=== PATIENT | female | born 1965 | race Caucasian/White ===

== ENCOUNTER 2017-08-16 15:51 | Inpatient (IN) ==
[2017-08-16 16:39] LABS: Basophils % 0.2 % (0.0-0.8); Eosinophils # 0.1 10*3/uL (0.0-0.87); Eosinophils % 0.6 % (0.00-10.9); Hematocrit 46.4 VOL% (35.7-47.0); Hemoglobin 15.9 GM/DL (12.0-16.0); Immature Granulocytes % 0.3 %; Immature Granulocytes Absolute 0.04 #; Lymphocytes % 29.8 % (21.3-54.2); Mean Corpuscular HGB Conc 34.3 GM/DL (32-36); Mean Corpuscular Hemoglobin 31 PG (27-34); Mean Corpuscular Volume 89.2 FL (87-102); Mean Platelet Volume 9.9 FL (9.6-12.0); Monocytes # 1.5 10*3/uL (0.11-0.8); Monocytes % 10.7 % (1.7-12.7); Neutrophils # 7.9 10*3/uL (1.4-7.4); Neutrophils % 58.4 % (38.7-73.9); Platelet Count 257 T/CUMM (130-400); Red Cell Distribution Width 12.8 % (9.3-17.3); White Blood Count 13.6 T/CUMM (4-12)
[2017-08-16 17:05] LABS: Albumin 3.8 G/DL (3.4-5.0); Bilirubin,Total 1.4 MG/DL (0.2-1.0); Calcium 9.7 MG/DL (8.5-10.1); Lactic Acid 1.3 MMOL/L (0.4-2.0); Osmolality,Calculated 271.8 MOS/KG (273-304); Potassium 3.5 MMOL/L (3.5-5.1); Total Protein 8.4 G/DL (6.4-8.3)
[2017-08-16] MEDS ORDERED: PIPERACILLIN/TAZOBACTAM 3,375 MG in SODIUM CHLORIDE 0.9% 100 ML IV STA (17:34)
--- NOTE | 2017-08-16 17:46 | Emergency Department Note ---
Victor M Willis Manpreet, am scribing for, and in the presence of, Micha Park MD 16: 50. Xavier Willis Micah, MD, personally performed the services described in this documentation, ascribed by Vinayak Dow in my presence, and it is both accurate and complete 744 . Arrival - Arrival Chief Complaint: Animal Bite Stated Complaint: cat bite ED Nursing Triage Note: Pt c/o cat bite to her left hand on . that was her cat with its immunizations UTD. Pt was seen by Dr Boss yesterday given Rocephin inj and Augmentin RX but the swelling has worsened. Mode of Arrival: Ambulatory Limitations: No Limitations Source: Patient Time Seen by Provider: 08/16/17 16:42 - History of Present Illness HPI Narrative: Pt is a 52 y/o female who presents to the ED with CC of redness and swelling to her left hand S/P bite from her cat on 08/13/17. Pt has three puncture wounds which have been draining. Pt was seen by Dr. Boss yesterday and Rx'ed Augmentin which she states she has taken. Patient also given Rocephin at that time. Pt states the swelling has worsened. Pt's left hand is marked with a pink marker and a black marker to indicate growth of the infection. Pt denies any fever, chills, or N/V/D. No other pains/complaints reported to the ED. Onset (ago): day(s) (08/13/17) Consistency: constant Severity: moderate Allergies/Adverse Reactions: Allergies Allergy/AdvReac Type Severity Reaction Status Date / Time No Known Allergies Allergy Unverified 02/20/15 06:43 Home Medications: Home Medications Medication Instructions Recorded Confirmed Type Ascorbic Acid [Vitamin C] 500 mg PO DAILY 02/20/15 02/20/15 History Lysine 500 mg PO DAILY 02/20/15 02/20/15 History Multivitamin [One Daily] 1 each PO DAILY 02/20/15 02/20/15 History Sulfameth/Trimeth 800-160 Tab 1 tablet PO BID #14 tablet 02/20/15 Rx [Bactrim Ds Tab] Sulfameth/Trimeth 800-160 Tab See Protocol PO DAILY 02/20/15 02/20/15 History [Bactrim Ds Tab] Vitamin E 400 unit PO DAILY 02/20/15 02/20/15 History Zinc 1 mg PO DAILY 02/20/15 02/20/15 History Review of System - Review of System 12 point system: reviewed and no additional remarkable complaints except as stated - Review of System Constitutional: Absent: chills, diaphoresis, fever Respiratory: Absent: cough, respiratory distress, wheezing Cardiovascular: Absent: chest pain, palpitations Gastrointestinal: Absent: abdominal pain, nausea, vomiting, diarrhea Musculoskeletal: Present: arm pain (Left arm/hand pain) Skin: Present: change in color (Redness to left hand). Absent: rash Neurological: Absent: headache, weakness, numbness, paresthesias Medical,Surgical,& Family Hx - Medical History Gastrointestinal: History of: Ulcerative Colitis - Surgical History Abdominal Surgeries: Surgical HX of: Cholecystectomy Orthopedic Surgeries: Surgical HX of;: Orthopedic Surgery (right hip) - Social History Smoking Status: Never smoker Exam Vital Signs: Vital Signs Temperature 96.5 F L 08/16/17 15:52 Pulse Rate 86 08/16/17 15:52 Respiratory Rate 16 08/16/17 15:52 Blood Pressure 144/103 08/16/17 15:52 O2 Sat by Pulse Oximetry 99 08/16/17 15:52 - General General appearance: alert - Head Head exam: Present: atraumatic, normocephalic, normal inspection - Eye Eye exam: Present: normal appearance, PERRL, EOMI - ENT ENT exam: Present: normal exam, normal oropharynx, mucous membranes moist, TM's normal bilaterally - Neck Neck exam: Present: normal inspection, full ROM, trachea midline. Absent: tenderness - Chest Chest inspection: Present: normal inspection, symmetric chest wall rise. Absent : tenderness - Respiratory Respiratory exam: Present: normal lung sounds bilaterally. Absent: accessory muscle use - Cardiovascular Cardiovascular exam: Present: regular rate, normal rhythm, normal heart sounds. Absent: murmur, rubs, gallop - Abdominal Exam Abdominal exam: Present: soft, normal bowel sounds - Extremities Exam Extremities exam: Present: full ROM, other (Left hand and wrist and forearm erythematous and tender to palpation. See skin exam for detailed) - Back Exam Back exam: Present: normal inspection, full ROM - Neurological Exam Neurological exam: Present: alert, oriented X3, reflexes normal - Psychiatric Psychiatric exam: Present: normal affect, normal mood - Skin Skin exam: Present: warm, dry, erythema (To left wrist and arm; 2 puncture wounds to dorsal aspect of left arm and 1 puncture wound to the volar aspect of left wrist, erythema streaking proximally up the left forearm). Absent: normal color Course Course Narrative: Hospitalist called for admission for parenteral antibiotics. Started Zosyn IV, first dose given in ER. Patient without signs of systemic infection. Results - Labs CBC & BMP: 08/16/17 16:24 08/16/17 16:24 Lab Results: I have reviewed the patients labs Labs: Laboratory Tests 08/16/17 16:24 WBC 13.6 H RBC 5.20 Hgb 15.9 Hct 46.4 MCV 89.2 MCH 31 MCHC 34.3 RDW 12.8 Plt Count 257 MPV 9.9 Neut % (Auto) 58.4 Lymph % (Auto) 29.8 [place] % (Auto) 10.7 Eos % (Auto) 0.6 Baso % (Auto) 0.2 Neut # (Auto) 7.9 H Lymph # (Auto) 4.0 [place] # (Auto) 1.5 H Eos # (Auto) 0.1 Baso # (Auto) 0.0 Immature Gran % 0.3 Nucleated RBC % 0.0 Immature Gran # 0.04 Nucleated RBCs # 0.00 Immature Plt Fraction 0.0 Laboratory Tests 08/16/17 16:24 Sodium 137 Potassium 3.5 Chloride 104 Carbon Dioxide 25 Anion Gap 11.5 BUN 12 Creatinine 1.00 GFR Calculation 74 BUN/Creatinine Ratio 12.00 Glucose 76 Calculated Osmolality 271.8 L Lactic Acid 1.3 Calcium 9.7 Total Bilirubin 1.40 H AST 29 ALT 59 H Alkaline Phosphatase 136 H Total Protein 8.4 H Albumin 3.8 Globulin 4.6 H Albumin/Globulin Ratio 0.8 L Disposition Clinical Impression: Bite by animal Case discussed with: patient Disposition: Still a Patient Condition: Stable Time of Disposition: 17:45
[2017-08-16] MEDS ORDERED: MORPHINE 2 MG/1 ML SYRINGE IV PRN (17:58)
[2017-08-16] MEDS ORDERED: ACETAMINOPHEN 325 MG TABLET PO PRN (17:58)
[2017-08-16] MEDS ORDERED: DOCUSATE SODIUM 100 MG CAPSULE PO PRN (17:58)
[2017-08-16] MEDS ORDERED: ZALEPLON 5 MG CAPSULE PO PRN (17:58)
[2017-08-16] MEDS ORDERED: ONDANSETRON 4 MG/2 ML VIAL IV PRN (17:58)
[2017-08-16] MEDS ORDERED: SODIUM CHLORIDE 0.9% 100 ML IV ONE (18:01)
[2017-08-16] MEDS ORDERED: PIPERACILLIN/TAZOBACTAM 3,375 MG VIAL IV ONE (18:01)
--- NOTE | 2017-08-16 18:14 | Hospitalist History & Physical ---
Assessment and Plan (1) Bite by animal Status: Acute Assessment and plan: Patient being started on IV Zosyn to cover common cat bite pathogens including Pasteurella, Capnocytophaga, Anerobes, Staph & streptococci spp. Will consult orthopedics and get an MRI of the hand to evaluate for subcutaneous abscess, osteomyelitis septic arthritis or tendinitis. Follow-up on the wound and blood cultures. Provide pain relief with NSAIDs and narcotics. Current Visit: Yes History of Present Illness Chief complaint: Left hand pain & swelling x 3 days History of present illness: Ms. Lopez is a 52 year old who presented to ED with redness and swelling to her left hand S/P bite from her pet cat 3 days ago on 08/13/17. Pt prsented three puncture wounds which have been draining yellowish purulent material. Pt was seen by PCP Dr. Boss yesterday and prescribed Augmentin which she has been taking. Patient also received Rocephin at that time. Pt stated that swelling has progressed. In ER pt's left hand was marked with a pink marker and a black marker to indicate growth of the infection. Pt denied any fever, chills. She had difficulty sleeping last night due to pain she reports was 10 out of 10 in intensity. She has been taking ibuprofen for pain control. She is now being admitted to hospitalist service for IV antibiotics. Home Medications Medication Instructions Recorded Confirmed Type Ascorbic Acid [Vitamin C] 500 mg PO DAILY 02/20/15 02/20/15 History Lysine 500 mg PO DAILY 02/20/15 02/20/15 History Multivitamin [One Daily] 1 each PO DAILY 02/20/15 02/20/15 History Sulfameth/Trimeth 800-160 Tab 1 tablet PO BID #14 tablet 02/20/15 Rx [Bactrim Ds Tab] Sulfameth/Trimeth 800-160 Tab See Protocol PO DAILY 02/20/15 02/20/15 History [Bactrim Ds Tab] Vitamin E 400 unit PO DAILY 02/20/15 02/20/15 History Zinc 1 mg PO DAILY 02/20/15 02/20/15 History Allergies Allergy/AdvReac Type Severity Reaction Status Date / Time No Known Allergies Allergy Unverified 02/20/15 06:43 Medical,Surgical,& Family Hx - Medical History Gastrointestinal: History of: Ulcerative Colitis - Surgical History Abdominal Surgeries: Surgical HX of: Cholecystectomy Orthopedic Surgeries: Surgical HX of;: Orthopedic Surgery (right hip) - Social History Smoking Status: Never smoker Marital Status: 12 point system: reviewed and no additional remarkable complaints except as stated (Pain and swelling and erythema in the left hand) Exam - Constitutional Vitals: Period Temp Pulse Resp BP Sys/Branham Pulse Ox Last 24 Hr 96.5 F 86 16 144/103 99 Exam: General: No Acute Distress HEENT: Normocephalic, atraumatic, Extra ocular movements intact Neck: Supple, No JVD Chest: Clear to auscultation B/L CV: S1 + S2 audible without murmur, gallop or rub Abd: soft, NT, Non-distended, BS + Ext: Left hand erythematous and swollen with 3 puncture wounds, one draining purulent material, erythema and swelling extending to the distal forearm Skin: No purpura, bruising or rash Rheumatologic: No Joint deformities Neurologic: Strength 5/5 all extremities, no gross sensory deficits Results - Labs CBC & BMP: 08/16/17 16:24 08/16/17 16:24 Quality Measures - VTE Contraindication to Pharmacological VTE Prophylaxis: Already on Theraputic Agent , No Prophylaxis Needed
--- NOTE | 2017-08-16 20:19 | XRay Report ---
Exam: XR hand 3V LT Indication: Injury Pain, Comparison: No relevant comparisons Findings: Joint spaces fairly well maintained. No fracture or dislocation. No joint effusion. Dorsal soft tissue swelling. No radiopaque foreign bodies Impression: Dorsal soft tissue swelling. No associated osseous or articular abnormalities PROCEDURE INTERPRETED AT [facility] DEPARTMENT OF RADIOLOGY Final Report Signed by: Karan Card MD
--- NOTE | 2017-08-16 20:24 | XRay Report ---
Exam: XR wrist 3V LT Indication: Cat-bite, swelling Pain, Comparison: No relevant comparisons Findings: Joint spaces fairly well maintained. No fracture or dislocation. No joint effusion. Dorsal soft tissue swelling. No radiopaque foreign bodies Impression: Dorsal soft tissue swelling. No associated osseous or articular abnormalities PROCEDURE INTERPRETED AT [facility] DEPARTMENT OF RADIOLOGY Final Report Signed by: Karan Card MD
[2017-08-16] MEDS: ENOXAPARIN 40 MG/0.4 ML SYRINGE SUBCUT SCH (20:41)
[2017-08-17] MEDS: NAPROXEN 500 MG TABLET PO PRN ×2 (00:41→17:00)
[2017-08-17] MEDS: PIPERACILLIN/TAZOBACTAM 3,375 MG in SODIUM CHLORIDE 0.9% 100 ML IV SCH ×3 (02:02→17:41)
[2017-08-17 05:05] LABS: Basophils % 0.3 % (0.0-0.8); Eosinophils # 0.1 10*3/uL (0.0-0.87); Eosinophils % 0.5 % (0.00-10.9); Hematocrit 42.6 VOL% (35.7-47.0); Hemoglobin 14.8 GM/DL (12.0-16.0); Immature Granulocytes % 0.4 %; Immature Granulocytes Absolute 0.05 #; Lymphocytes # 2.4 10*3/uL (1.4-4.0); Lymphocytes % 18.2 % (21.3-54.2); Mean Corpuscular HGB Conc 34.7 GM/DL (32-36); Mean Corpuscular Hemoglobin 31 PG (27-34); Mean Corpuscular Volume 88.6 FL (87-102); Mean Platelet Volume 10.6 FL (9.6-12.0); Monocytes # 1.5 10*3/uL (0.11-0.8); Monocytes % 11.7 % (1.7-12.7); Neutrophils % 68.9 % (38.7-73.9); Platelet Count 250 T/CUMM (130-400); Red Blood Count 4.81 MC/CUMM (3.8-5.5); Red Cell Distribution Width 12.7 % (9.3-17.3); White Blood Count 13.1 T/CUMM (4-12)
[2017-08-17 05:34] LABS: Calcium 8.6 MG/DL (8.5-10.1); Osmolality,Calculated 282.1 MOS/KG (273-304); Potassium 4.1 MMOL/L (3.5-5.1)
--- NOTE | 2017-08-17 07:28 | Orthopedic Consult Note ---
History of Present Illness Chief complaint: Hand infection left History of present illness: Ms. Lopez is a 52 year old female See dictated report Impression: Cat bite with subcutaneous hand infection Plan. We will keep n.p.o. cancel MRI and proceed with I&D and surgery today Home Medications Medication Instructions Recorded Confirmed Type Ascorbic Acid [Vitamin C] 500 mg PO DAILY 02/20/15 08/16/17 History Lysine 500 mg PO DAILY 02/20/15 08/16/17 History Multivitamin [One Daily] 1 each PO DAILY 02/20/15 08/16/17 History Sulfameth/Trimeth 800-160 Tab 1 tablet PO BID #14 tablet 02/20/15 08/16/17 Rx [Bactrim Ds Tab] Vitamin E 400 unit PO DAILY 02/20/15 08/16/17 History Zinc 1 mg PO DAILY 02/20/15 08/16/17 History PARoxetine HCl [Paroxetine HCl] 20 mg PO DAILY 08/16/17 08/16/17 History Allergies Allergy/AdvReac Type Severity Reaction Status Date / Time No Known Allergies Allergy Unverified 02/20/15 06:43 Medical,Surgical,& Family Hx - Medical History Cardio: History of: Hypertension Respiratory: History of: Bronchitis Gastrointestinal: History of: Ulcerative Colitis - Surgical History Abdominal Surgeries: Surgical HX of: Cholecystectomy, Colonoscopy (x5) Reproductive Surgeries: Surgical HX of;: Tubal Ligation Orthopedic Surgeries: Surgical HX of;: Orthopedic Surgery (right hip ORIF) - Family History Family History: Reports;: Family Cancer (Father, sister), Family Hypertension ( Father), Family Stroke (Father) - Social History Smoking Status: Never smoker Frequency of Alcohol Use: None Type of Drug Use: None Exam - Constitutional Vitals: Period Temp Pulse Resp BP Sys/Branham Pulse Ox Last 24 Hr 96.5 F-98.6 F 73-86 16-20 121-153/69-104 96-99 Results - Labs CBC & BMP: 08/17/17 04:01 08/17/17 04:01
[2017-08-17] MEDS ORDERED: DIAZEPAM 5 MG TABLET PO ONE (07:53)
[2017-08-17] MEDS: PARoxetine 20 MG TABLET PO SCH (09:00)
[2017-08-17] MEDS: PANTOPRAZOLE 40 MG TABLET PO SCH (09:23)
[2017-08-17] MEDS ORDERED: SCOPOLAMINE 1.5 MG PATCH TRANSDERM ONE (10:19)
--- NOTE | 2017-08-17 10:37 | Hospitalist Progress Note ---
Assessment and Plan (1) Bite by animal Status: Acute Assessment and plan: Cat bite with subcutaneous left hand infection. Surgery is taking to the OR today for I&D. MRI has been canceled. Plan Continue with IV antibiotics Follow cultures Continue with Surgery's recommendations. Current Visit: Yes (2) HTN (hypertension) Status: Acute Assessment and plan: will start Novasc 5mg, follow response get UA, lipids, A1c and TSH levels Current Visit: Yes (3) Ulcerative colitis Status: Acute Assessment and plan: stable Current Visit: Yes (4) Bronchitis Status: Acute Assessment and plan: stable Current Visit: Yes Hospitalist: Subjective Interval history: patient seen this am. She had no new complaints. Surgery is taking to the OR for Iand D today. Exam - Constitutional Vitals: Period Temp Pulse Resp BP Sys/Branham Pulse Ox Last 24 Hr 96.5 F-98.6 F 73-86 16-20 121-153/69-104 96-99 General appearance: no acute distress - Head Head exam: Present: normal inspection - Neck Neck exam: Present: normal inspection - Respiratory Respiratory exam: Present: clear to auscultation bilaterally - Cardiovascular Cardiovascular exam: Present: regular rate and rhythm - GI/Abdominal GI/Abdominal exam: Present: normal bowel sounds - Extremities Exam Extremities exam: Present: other (left hand swelling, tenderness, bandaged) - Neurological Exam Neurological exam: Present: alert, oriented X3 Results - Labs CBC & BMP: 08/17/17 04:01 08/17/17 04:01 Lab Results: I have reviewed the past 24 hour labs Quality Measures - VTE Contraindication to Pharmacological VTE Prophylaxis: Already on Theraputic Agent , No Prophylaxis Needed
[2017-08-17 11:17] LABS: Free T4 (Free Thyroxine) 1.18 NG/DL (0.76-1.46); Risk Ratio 2.71; Thyroid Stimulating Hormone 6.96 uIU/ml (0.358-3.74); VLDL CHOLESTEROL 15.2 MG/DL
--- NOTE | 2017-08-17 11:31 | Operative Note ---
Date of procedure: 08/17/17 Procedure: I&D left hand Surgeon / Physician: David Oconnor Jr. Results - Labs CBC & BMP: 08/17/17 04:01 08/17/17 04:01 Discharge Plan - Discharge Medications No Action Ascorbic Acid [Vitamin C] 500 mg PO DAILY Vitamin E 400 unit PO DAILY Lysine 500 mg PO DAILY Multivitamin [One Daily] 1 each PO DAILY Zinc 1 mg PO DAILY Sulfameth/Trimeth 800-160 Tab [Bactrim Ds Tab] 1 tablet PO BID #14 tablet PARoxetine HCl [Paroxetine HCl] 20 mg PO DAILY - Follow Up or Referral - Forms/Instructions
--- NOTE | 2017-08-17 11:42 | Anesthesia Post-Op ---
Anesthesia Post OP - Post Ansesthetic Evaluation Patient seen in post op: Yes Resp: within normal limits CV: within normal limits Mental: within normal limits Temp: within normal limits [id number]: within normal limits Nausea and Vomiting: within normal limits Pain: within normal limits
[2017-08-17] MEDS ORDERED: fentaNYL 100 MCG/2 ML VIAL ONE (11:44)
[2017-08-17] MEDS ORDERED: PROPOFOL 200 MG/20 ML VIAL IV ONE (11:44)
[2017-08-17] MEDS ORDERED: MIDAZOLAM 2 MG/2 ML VIAL ONE (11:44)
[2017-08-17] MEDS ORDERED: SEVOFLURANE 1 UNIT/15 MINUTE INH ONE (11:44)
[2017-08-17] MEDS ORDERED: ACETAMINOPHEN 1,000 MG/100 ML VIAL IV ONE (11:44)
[2017-08-17] MEDS ORDERED: ONDANSETRON 4 MG/2 ML VIAL ONE ×2 (11:44→12:22)
[2017-08-17] MEDS ORDERED: SUCCINYLCHOLINE 200 MG/10 ML VIAL ONE (11:45)
[2017-08-17] MEDS ORDERED: MEPERIDINE 25 MG/1 ML VIAL IV PRN (12:06)
[2017-08-17] MEDS ORDERED: ONDANSETRON 4 MG/2 ML VIAL IV PRN (12:21)
[2017-08-17] MEDS ORDERED: HYDROmorphone 2 MG/1 ML VIAL ONE (12:22)
[2017-08-17] MEDS: HYDROmorphone 2 MG/1 ML VIAL IV PRN ×4 (12:23→12:40)
--- NOTE | 2017-08-17 12:52 | Event Note ---
Patient gone for surgery. She is on Zosyn which should be okay. We will see her tomorrow.
[2017-08-17] MEDS: amLODIPine 5 MG TABLET PO SCH (13:47)
--- NOTE | 2017-08-17 17:21 | Consultation ---
DATE OF CONSULT: 08/17/2017 A 52-year-old white female, admitted for soft tissue hand infection on the left as a result of a cat bite, she sustained approximately four days prior to admission. She had three wounds about the dorsu m of the left hand and wrist. She initially presented to emergency room, started on oral antibiotics . This did not improve at all, it actually worsened, prompting her reevaluation and admission. I wa s asked to evaluate regarding her hand infection. PHYSICAL EXAMINATION GENERAL: A well-developed, well-nourished female. She has three heath consistent with puncture inju ry on the left hand. Two of them are over the dorsum of the hand in the region of the fourth extenso r compartment and the third is more at the base of the thumb. Unroofing the pustules reveal seropuru lent discharge. There is still moderate erythema at the dorsum hand appears to have improved and she reports that has improved since her admission. She is able to actively flex and extend the digits g ently as well as the wrist. Radiographs revealed no obvious bony abnormality, no foreign body. IMPRESSION: There is a soft tissue infection, left hand secondary to cat bite. PLAN: I discussed with her and my concern in regard of the infectious process that is better on the IV antibiotics. I would recommend formerly opening up the wounds and washing out. I have cancelled the MRI that was scheduled for today. She appears understanding and agrees with the plan.
--- NOTE | 2017-08-17 17:21 | Operative Note ---
DATE: 08/17/2017 PREOPERATIVE DIAGNOSIS: SOFT TISSUE INFECTIONS/ABSCESS, LEFT HAND. POSTOPERATIVE DIAGNOSIS: SAME. PROCEDURE: I & D, LEFT HAND SURGEON: David Oconnor Jr., MD ANESTHESIA: General. INDICATIONS: A 52-year-old white female, approximately 5 days from a cat bite. The animal is one of her pets. She has had progressively worsening symptoms of pain and swelling that prompted admission last night. She has improved some on IV antibiotics. I discussed with her the need to formerly wash up the multiple puncture sites on the dorsum of the hand and wrist. OPERATIVE PROCEDURE: The patient was taken to the operating room and under general anesthetic, positioned supine position. The left upper extremity prepped and draped in a usual sterile manner. The two pustules on the top of the hand were opened up, extending from the large one, both in proximal and distal direction. This allowed easy visualization of infected subcutaneous tissue. Cultures were obtained. I was able to get the central fourth extensor compartment wound and the base of the thumb wound to communicate. An incision was made over the thumb and also to further irrigate and debride the area. A 2 L of normal saline were used to irrigate and both wounds were dressed open and packed with gauze in between. Sterile soft dressing and volar splint was applied. She was taken to recovery room in a stable condition. Tourniquet time 17 minutes. [facility]
--- NOTE | 2017-08-17 18:09 | Orthopedic Progress Note ---
Orthopedics - Subjective Interval history: Pain control fair able to actively wiggle fingers discussed her findings we will plan on washout again on Thursday morning possible closure. Discussed. Agrees Exam - Constitutional Vitals: Period Temp Pulse Resp BP Sys/Branham Pulse Ox Last 24 Hr 97.2 F-98.6 F 74-91 14-20 98-153/65-91 95-100 Results - Labs CBC & BMP: 08/17/17 04:01 08/17/17 04:01 Quality Measures - VTE Contraindication to Pharmacological VTE Prophylaxis: Already on Theraputic Agent , No Prophylaxis Needed
[2017-08-17] MEDS ORDERED: MORPHINE 2 MG/1 ML SYRINGE IV PRN (18:16)
[2017-08-17] MEDS: ENOXAPARIN 40 MG/0.4 ML SYRINGE SUBCUT SCH (21:00)
[2017-08-17 21:32] LABS: Apearance,Urine CLEAR (Clear); Bilirubin,Urine Negative (Negative); Blood, Urine Negative (Negative); Glucose,Urine (UA) Negative (Negative); Ketones,Urine Negative (Negative); Nitrite,Urine Negative (Negative); Protein,Urine Negative; Squamous Epithelial Cell,Urine Occasional /HPF (0-10); Urine Color Straw (Yellow); Urine Specific Gravity 1.005 (1.001-1.035); Urine Urobilinogen < 2.0 EU/DL (0.2-1.0); WBC,Urine <1 /HPF (0-6)
[2017-08-18] MEDS: PIPERACILLIN/TAZOBACTAM 3,375 MG in SODIUM CHLORIDE 0.9% 100 ML IV SCH ×3 (02:44→17:43)
--- NOTE | 2017-08-18 08:23 | Orthopedic Progress Note ---
Orthopedics - Subjective Interval history: Pain control good splint dressing dry. Discussed need to washout again tomorrow. Exam - Constitutional Vitals: Period Temp Pulse Resp BP Sys/Branham Pulse Ox Last 24 Hr 96.8 F-98.0 F 67-91 14-20 98-143/59-91 95-100 Results - Labs CBC & BMP: 08/17/17 04:01 08/17/17 04:01 Quality Measures - VTE Contraindication to Pharmacological VTE Prophylaxis: Already on Theraputic Agent , No Prophylaxis Needed
[2017-08-18] MEDS: PANTOPRAZOLE 40 MG TABLET PO SCH (09:30)
[2017-08-18] MEDS: PARoxetine 20 MG TABLET PO SCH (09:30)
[2017-08-18] MEDS: amLODIPine 5 MG TABLET PO SCH (09:30)
--- NOTE | 2017-08-18 10:02 | Infectious Disease Consult ---
Assessment and Plan (1) Cellulitis of left hand Status: Acute Assessment and plan: Gram negative rods growing from wound culture, possibly pasteurella. There is likely associated tendinitis and tenosynovitis. Anaerobes probably also involved as well. Recommendations I would leave patient on Zosyn for now but most likely I will de -escalate to Unasyn. Continue wound care, repeat surgery pending for tomorrow. Thank you very much for the consult. Will follow. Discussed with patient's at bedside ADDENDUM Pasteurella isolated. Will de-escalate from Zosyn to Unasyn. Current Visit: Yes (2) Bite by animal Status: Acute Current Visit: Yes (3) HTN (hypertension) Status: Acute Current Visit: Yes (4) Diarrhea Status: Acute Assessment and plan: This is antibiotic induced diarrhea. We need to make sure she does not have C. difficile. Recommendations: Stool 3 sets for C. difficile toxin Current Visit: Yes History of Present Illness Chief complaint: Infected cat bite History of present illness: Ms. Lopez is a 52 year old female with no significant past medical history was well until the day after her cat bit her. Catheter to the left hand and within 24 hours it started getting swollen painful and red. She never had fever. She sought medical attention 2 days later and was given Augmentin and got the shot of ceftriaxone in the doctor's office. However she continued to have severe worsening pain and swelling so she came to the emergency room 2 nights ago and was admitted. She was taken to the operating room yesterday for debridement. She feels a little better but still has a lot of pain. Repeat debridement pending for tomorrow. I am asked to assist with management. Home Medications Medication Instructions Recorded Confirmed Type Ascorbic Acid [Vitamin C] 500 mg PO DAILY 02/20/15 08/16/17 History Lysine 500 mg PO DAILY 02/20/15 08/16/17 History Multivitamin [One Daily] 1 each PO DAILY 02/20/15 08/16/17 History Sulfameth/Trimeth 800-160 Tab 1 tablet PO BID #14 tablet 02/20/15 08/16/17 Rx [Bactrim Ds Tab] Vitamin E 400 unit PO DAILY 02/20/15 08/16/17 History Zinc 1 mg PO DAILY 02/20/15 08/16/17 History PARoxetine HCl [Paroxetine HCl] 20 mg PO DAILY 08/16/17 08/16/17 History Allergies Allergy/AdvReac Type Severity Reaction Status Date / Time No Known Allergies Allergy Unverified 02/20/15 06:43 12 point system: reviewed and no additional remarkable complaints except as stated (Severe diarrhea since been on antibiotics, about 12 soft stools for 24 hours, rest of compressive review of systems negative apart from what was mentioned in HPI) Medical,Surgical,& Family Hx - Medical History Cardio: History of: Hypertension Neurology: No history of: Seizures Respiratory: History of: Bronchitis Gastrointestinal: History of: Ulcerative Colitis - Surgical History Abdominal Surgeries: Surgical HX of: Cholecystectomy, Colonoscopy (x5) Reproductive Surgeries: Surgical HX of;: Tubal Ligation Orthopedic Surgeries: Surgical HX of;: Orthopedic Surgery (right hip ORIF) - Family History Family History: Reports;: Family Cancer (Father, sister), Family Hypertension ( Father), Family Stroke (Father) - Social History Smoking Status: Never smoker Frequency of Alcohol Use: None Type of Drug Use: None Infectious Disease Exam H&P - Constitutional Vitals: Vital Signs Temp Pulse Resp BP Pulse Ox 96.8 F L 67 20 118/67 95 08/18/17 07:26 08/18/17 07:26 08/18/17 07:26 08/18/17 07:26 08/18/17 07:26 Intake and Output 08/17/17 08/18/17 08/18/17 23:59 07:59 15:59 Intake Total 980 / 980 220 / 220 Output Total 700 / 700 Balance 280 / 280 220 / 220 Intake: IV 100 / 100 100 / 100 Zosyn 3,375 mg In Ns 100 100 / 100 100 / 100 ml @ 25 mls/hr IV Q8H [facility] Rx#:[id number] Oral 880 / 880 120 / 120 Output: Urine 700 / 700 Other: Emesis 0 Voiding Method Toilet Toilet # Voids 3 3 # Bowel Movements 2 3 Exam: General: Patient relatively comfortable sitting in chair HEENT: Mucous membranes pink and moist, anicteric acyanotic, LAISHA, no oral exudates Neck: Supple, no thyroid gland enlargement Respiratory system: Breath sounds vesicular, no crepitations or wheezes Cardiovascular: Normal S1 and S2, no murmurs appreciated Abdomen: Normal bowel sounds, soft nontender throughout, no organomegaly or mass Genitourinary: No suprapubic pain or bladder distention Extremities: Left forearm and hand bandaged, fingers are edematous, no ipsilateral epitrochlear lymphadenopathy Skin: No rash Reports - Labs CBC & BMP: 08/17/17 04:01 08/17/17 04:01 Labs: Laboratory Results - last 24 hr 08/17/17 08/17/17 08/17/17 04:00 04:00 21:04 Hemoglobin A1c 5.5 Triglycerides 76 Cholesterol 149 LDL Cholesterol 80.0 VLDL Cholesterol 15.2 HDL Cholesterol 55 Heart Disease Risk Ratio 2.71 Free T4 1.18 TSH 3rd Generation 6.960 H Urine Color Straw Urine Appearance Clear Urine pH 6.0 Ur Specific [place] 1.005 Urine Protein Negative Urine Glucose (UA) Negative Urine Ketones Negative Urine Blood Negative Urine Nitrate Negative Urine Bilirubin Negative Urine Urobilinogen < 2.0 H Urine Leukocytes Negative Urine WBC <1 Ur Squamous Epith Cells Occasional Ur Culture Indicated? Not indicated - Reports Microbiology: Microbiology 08/16/17 17:16 Blood Culture - Preliminary Blood No growth at 1 day 08/16/17 17:17 Blood Culture - Preliminary Blood No growth at 1 day 08/16/17 17:17 Wound Culture - Preliminary Wrist - Left Gram Negative Rods
--- NOTE | 2017-08-18 11:39 | Hospitalist Progress Note ---
Assessment and Plan (1) Bite by animal Status: Acute Assessment and plan: Cat bite with subcutaneous left hand infection. S/p I&D. WC grew Paterella multocida. ID is following. She will be going for a washout again in am Plan Continue with IV antibiotics per ID Continue with Surgery's recommendations. Continue wound dressing Current Visit: Yes (2) HTN (hypertension) Status: Acute Assessment and plan: reduce Novasc to 2.5mg, follow response Current Visit: Yes (3) Ulcerative colitis Status: Acute Assessment and plan: stable Current Visit: Yes (4) Bronchitis Status: Acute Assessment and plan: stable Current Visit: Yes (5) Elevated TSH Status: Acute Assessment and plan: Patient most likely has subclinical hypothyroidism. She will need to be followed as outpatient for possible commencement of supplements. Current Visit: Yes Hospitalist: Subjective Interval history: Patient was seen at bedside today. She had I&D yesterday and she will have a washout again tomorrow. She complains of some pain in her hand and watery stools. We appreciates ID's input Exam - Constitutional Vitals: Period Temp Pulse Resp BP Sys/Branham Pulse Ox Last 24 Hr 96.8 F-98.0 F 63-90 14-20 98-143/59-91 95-100 General appearance: no acute distress - Head Head exam: Present: normal inspection - Eye Eye exam: Present: EOMI - Neck Neck exam: Present: normal inspection - Respiratory Respiratory exam: Present: clear to auscultation bilaterally - Cardiovascular Cardiovascular exam: Present: regular rate and rhythm - GI/Abdominal GI/Abdominal exam: Present: normal bowel sounds - Extremities Exam Extremities exam: Present: other (left hand bandaged, she was able to wiggle her fingers) - Neurological Exam Neurological exam: Present: alert, oriented X3 Results - Labs CBC & BMP: 08/17/17 04:01 08/17/17 04:01 Lab Results: I have reviewed the past 24 hour labs Quality Measures - VTE Contraindication to Pharmacological VTE Prophylaxis: Already on Theraputic Agent , No Prophylaxis Needed
[2017-08-18] MEDS: ENOXAPARIN 40 MG/0.4 ML SYRINGE SUBCUT SCH (21:12)
[2017-08-18] MEDS: LOPERAMIDE 0.2 MG/ML 30 ML/BOTTLE PO PRN (21:13)
[2017-08-18] MEDS: MORPHINE 2 MG/1 ML SYRINGE IV PRN (21:19)
[2017-08-19] MEDS: LOPERAMIDE 0.2 MG/ML 30 ML/BOTTLE PO PRN ×4 (01:13→23:18)
[2017-08-19] MEDS: PIPERACILLIN/TAZOBACTAM 3,375 MG in SODIUM CHLORIDE 0.9% 100 ML IV SCH ×5 (01:15→23:07)
[2017-08-19] MEDS: PANTOPRAZOLE 40 MG TABLET PO SCH (08:17)
[2017-08-19] MEDS: PARoxetine 20 MG TABLET PO SCH (08:18)
[2017-08-19] MEDS: amLODIPine 2.5 MG TABLET PO SCH (08:19)
[2017-08-19] MEDS ORDERED: ROPIVACAINE 0.5% 30 ML VIAL ONE (08:44)
[2017-08-19] MEDS ORDERED: MIDAZOLAM 2 MG/2 ML VIAL ONE ×2 (08:45→10:31)
[2017-08-19] MEDS ORDERED: fentaNYL 100 MCG/2 ML VIAL ONE (08:45)
[2017-08-19] MEDS ORDERED: DEXAMETHASONE 10 MG/1 ML VIAL ONE (09:39)
[2017-08-19] MEDS ORDERED: LIDOCAINE 2% 5 ML VIAL ONE (09:39)
[2017-08-19] MEDS ORDERED: PROPOFOL 200 MG/20 ML VIAL IV ONE (09:39)
[2017-08-19] MEDS ORDERED: ONDANSETRON 4 MG/2 ML VIAL ONE (09:39)
--- NOTE | 2017-08-19 10:29 | Operative Note ---
Date of procedure: 08/19/17 Procedure: Irrigation debridement with wound closure left wrist hand Surgeon / Physician: David Oconnor Jr. Results - Labs CBC & BMP: 08/17/17 04:01 08/17/17 04:01 Discharge Plan - Discharge Medications No Action Ascorbic Acid [Vitamin C] 500 mg PO DAILY Vitamin E 400 unit PO DAILY Lysine 500 mg PO DAILY Multivitamin [One Daily] 1 each PO DAILY Zinc 1 mg PO DAILY Sulfameth/Trimeth 800-160 Tab [Bactrim Ds Tab] 1 tablet PO BID #14 tablet PARoxetine HCl [Paroxetine HCl] 20 mg PO DAILY - Follow Up or Referral - Forms/Instructions
--- NOTE | 2017-08-19 10:30 | Anesthesia Post-Op ---
Anesthesia Post OP - Post Ansesthetic Evaluation Patient seen in post op: Yes Resp: within normal limits CV: within normal limits Mental: within normal limits Temp: within normal limits [id number]: within normal limits Nausea and Vomiting: within normal limits Pain: within normal limits
[2017-08-19] MEDS ORDERED: SEVOFLURANE 1 UNIT/15 MINUTE INH ONE (10:31)
--- NOTE | 2017-08-19 10:51 | Event Note ---
Patient in the OR. We will see tomorrow.
[2017-08-19] MEDS: MORPHINE 2 MG/1 ML SYRINGE IV PRN ×2 (11:57→13:17)
--- NOTE | 2017-08-19 13:03 | Hospitalist Progress Note ---
Assessment and Plan (1) Bite by animal Status: Acute Assessment and plan: Cat bite with subcutaneous left hand infection. S/p I&D. WC grew Sonamella multocida. ID is following. She had a washout again this am, she was sore Plan Continue with IV antibiotics per ID, continue pain meds Continue with Surgery's recommendations. Continue wound dressing Current Visit: Yes (2) HTN (hypertension) Status: Acute Assessment and plan: stable Current Visit: Yes (3) Ulcerative colitis Status: Acute Assessment and plan: stable Current Visit: Yes (4) Bronchitis Status: Acute Assessment and plan: stable Current Visit: Yes (5) Elevated TSH Status: Acute Assessment and plan: Patient most likely has subclinical hypothyroidism. She will need to be followed as outpatient for possible commencement of supplements. Current Visit: Yes Hospitalist: Subjective Interval history: Patient seen today, she had just come back for the OR so she was really sore in her hand. Exam - Constitutional Vitals: Period Temp Pulse Resp BP Sys/Branham Pulse Ox Last 24 Hr 96.4 F-98.7 F 63-84 18-81 102-125/54-88 94-99 General appearance: no acute distress - Head Head exam: Present: normal inspection - Respiratory Respiratory exam: Present: clear to auscultation bilaterally - Cardiovascular Cardiovascular exam: Present: regular rate and rhythm - GI/Abdominal GI/Abdominal exam: Present: normal bowel sounds - Extremities Exam Extremities exam: Present: other (left hand bandaged) - Neurological Exam Neurological exam: Present: alert, oriented X3 Results - Labs CBC & BMP: 08/17/17 04:01 08/17/17 04:01 Lab Results: I have reviewed the past 24 hour labs Quality Measures - VTE Contraindication to Pharmacological VTE Prophylaxis: Already on Theraputic Agent , No Prophylaxis Needed Specialty Discharge - Follow Up or Referrals Follow up with: Heike Campa MD [Physician] - David Oconnor Jr., MD [Physician] -
--- NOTE | 2017-08-19 14:59 | Operative Note ---
DATE: 08/19/2017 POSTOPERATIVE DIAGNOSIS: SAME. OPERATIVE PROCEDURE: Irrigation and debridement, left hand and wrist infection with wound closure (6 cm). SURGEON: David Oconnor Jr., MD ANESTHESIA: General. OPERATIVE PROCEDURE: The patient was taken to the operating room and under general anesthetic, posit ioned supine position. All packing was removed. There was a marked reduction in the erythema around the operative site. The upper extremity was then prepped and draped in a usual sterile manner. No gross contamination or seropurulent material was encountered. The wound was carefully inspected and probed including the area that was communicating between the base of the thumb and the dorsal wrist i ncision. This was all irrigated with pulse lavage normal saline and then loosely reapproximated usin g 3-0 Nylon suture. Sterile dressings were applied and another volar splint was made. She was then awakened and taken to recovery room in stable condition.
[2017-08-19] MEDS: ENOXAPARIN 40 MG/0.4 ML SYRINGE SUBCUT SCH (20:04)
[2017-08-20] MEDS: PIPERACILLIN/TAZOBACTAM 3,375 MG in SODIUM CHLORIDE 0.9% 100 ML IV SCH ×2 (06:18→16:35)
--- NOTE | 2017-08-20 09:21 | Orthopedic Progress Note ---
Orthopedics - Subjective Interval history: Dressing changed wounds look good given instructions about discharge and written for her pain pill will let the ID side about p.o. antibiotics follow-up with me in approximately 10 days for suture removal Exam - Constitutional Vitals: Period Temp Pulse Resp BP Sys/Branham Pulse Ox Last 24 Hr 96.8 F-98.7 F 63-84 18-81 95-122/53-88 93-99 Results - Labs CBC & BMP: 08/17/17 04:01 08/17/17 04:01 Quality Measures - VTE Contraindication to Pharmacological VTE Prophylaxis: Already on Theraputic Agent , No Prophylaxis Needed Specialty Discharge - Follow Up or Referrals Follow up with: Heike Campa MD [Physician] - David Oconnor Jr., MD [Physician] -
[2017-08-20] MEDS: PARoxetine 20 MG TABLET PO SCH (09:41)
[2017-08-20] MEDS: PANTOPRAZOLE 40 MG TABLET PO SCH (09:42)
[2017-08-20] MEDS: LOPERAMIDE 0.2 MG/ML 30 ML/BOTTLE PO PRN ×2 (09:51→22:15)
[2017-08-20] MEDS: amLODIPine 2.5 MG TABLET PO SCH (09:54)
[2017-08-20] MEDS ORDERED: KETOROLAC 30 MG/1 ML VIAL IV PRN (13:08)
--- NOTE | 2017-08-20 13:09 | Hospitalist Progress Note ---
Assessment and Plan (1) Bite by animal Status: Acute Assessment and plan: Cat bite with subcutaneous left hand infection. S/p I&D. WC grew Sonamella multocida. ID is following. She had a washout again yesterday, she is still very sore in her hand Plan Continue with IV antibiotics , continue pain meds, will add Toradol prn. For dc in am, ID to recommend po antibiotics. Current Visit: Yes (2) HTN (hypertension) Status: Acute Assessment and plan: stable Current Visit: Yes (3) Ulcerative colitis Status: Acute Assessment and plan: stable Current Visit: Yes (4) Bronchitis Status: Acute Assessment and plan: stable Current Visit: Yes (5) Elevated TSH Status: Acute Assessment and plan: Patient most likely has subclinical hypothyroidism. She will need to be followed as outpatient for possible commencement of supplements. Current Visit: Yes (6) Erythema Status: Acute Assessment and plan: of the face and upper chest. ? due to antibiotics.It is very mild Plan Benadryl prn, will continue to watch Current Visit: Yes Hospitalist: Subjective Interval history: Patient seen. She was complaining of a lot of pain in her hand and didnt really want to ask for morphine. She also noticed some more redness on her face and upper chest. Exam - Constitutional Vitals: Period Temp Pulse Resp BP Sys/Branham Pulse Ox Last 24 Hr 96.8 F-98.7 F 63-83 18-20 95-119/53-77 93-99 General appearance: no acute distress, other (some erythema of the face and upper chest) - Head Head exam: Present: normal inspection - Respiratory Respiratory exam: Present: clear to auscultation bilaterally - Cardiovascular Cardiovascular exam: Present: regular rate and rhythm - GI/Abdominal GI/Abdominal exam: Present: normal bowel sounds - Extremities Exam Extremities exam: Present: other - Back Exam Back exam: Present: other (left hand bandaged) Results - Labs CBC & BMP: 08/17/17 04:01 08/17/17 04:01 Lab Results: I have reviewed the past 24 hour labs Quality Measures - VTE Contraindication to Pharmacological VTE Prophylaxis: Already on Theraputic Agent , No Prophylaxis Needed Specialty Discharge - Follow Up or Referrals Follow up with: Heike Campa MD [Physician] - David Oconnor Jr., MD [Physician] - 09/01/17 1:30 pm (10 days)
[2017-08-20] MEDS ORDERED: diphenhydrAMINE CAP 25 MG CAPSULE PO PRN (13:10)
[2017-08-20] MEDS: MORPHINE 2 MG/1 ML SYRINGE IV PRN ×2 (13:36→22:09)
--- NOTE | 2017-08-20 16:09 | Infectious Disease Progress ---
Assessment and Plan (1) Cellulitis of left hand Status: Acute Assessment and plan: Passarella infection of left hand with cellulitis and tenosynovitis. This is following a cat bite. Recommendations: I am okay with patient going home today. Augmentin will be appropriate for her and she has this at home. Appointment to see me in the office in about 1 week Current Visit: Yes (2) Bite by animal Status: Acute Current Visit: Yes (3) HTN (hypertension) Status: Acute Current Visit: Yes (4) Diarrhea Status: Acute Assessment and plan: First stool negative for C. difficile. Try and get another stool today before she leaves. Also check stool for white blood cells. Recommendations: Treat patient empirically for C. difficile infection therefore prescribed Flagyl 500 mg 3 times a day. Will review results when patient comes to see me in the office in about a week. Current Visit: Yes Infectious Disease - PN: Subj Interval history: Patient feeling better. Repeat surgery was adjusted and she is having less swelling and pain. Her wounds were sutured close. No fever. Having diarrhea still from the antibiotics. Infectious Disease Exam (PN) - Constitutional Vitals: Temp Pulse Resp BP Pulse Ox 98.7 F 67 18 110/68 95 08/20/17 11:02 08/20/17 11:02 08/20/17 11:02 08/20/17 11:02 08/20/17 11:02 General appearance: no acute distress, other (some erythema of the face and upper chest) Exam: General appearance: no acute distress - Eye Eye exam: Present: EOMI. no icterus Pupils: Present: LAISHA - ENT ENT exam: no oral exudates - GI/Abdominal GI/Abdominal exam: normal bowel sounds, soft, non-tender, no organomegaly or mass - Extremities Exam Extremities exam: no edema. Photos of left forearm and hand noted in chart and there is less erythema and edema since admission. - Skin Skin exam: no rash Results - Labs CBC & BMP: 08/17/17 04:01 08/17/17 04:01 Lab Results: I have reviewed the past 24 hour labs Quality Measures - VTE Contraindication to Pharmacological VTE Prophylaxis: Already on Theraputic Agent , No Prophylaxis Needed Specialty Discharge - Follow Up or Referrals Follow up with: Heike Campa MD [Physician] - 08/27/17 9:15 am David Oconnor Jr., MD [Physician] - 09/01/17 1:30 pm (10 days)
[2017-08-20] MEDS: ENOXAPARIN 40 MG/0.4 ML SYRINGE SUBCUT SCH (20:55)
[2017-08-20] MEDS: metroNIDAZOLE 500 MG TABLET PO SCH (22:09)
[2017-08-21] MEDS: PIPERACILLIN/TAZOBACTAM 3,375 MG in SODIUM CHLORIDE 0.9% 100 ML IV SCH ×2 (03:07→12:31)
[2017-08-21] MEDS: metroNIDAZOLE 500 MG TABLET PO SCH ×2 (06:07→16:39)
[2017-08-21] MEDS: PANTOPRAZOLE 40 MG TABLET PO SCH (09:07)
[2017-08-21] MEDS: PARoxetine 20 MG TABLET PO SCH (09:07)
[2017-08-21] MEDS: MORPHINE 2 MG/1 ML SYRINGE IV PRN (09:36)
[2017-08-21] MEDS: amLODIPine 2.5 MG TABLET PO SCH (09:38)
[2017-08-21 11:22] VITALS: BP 128/76
--- NOTE | 2017-08-21 12:09 | Discharge Summary ---
<Mignon Hardy - Last Filed: 08/21/17 12:05> Hospital Course - Hospital Course Hospital Course: Ms. Lopez is a 52 year old who presented to ED with redness and swelling to her left hand . Her cat bite her 3days prior to presentation.She saw her PCP a day prior to presentation and was given some Augmentin and got a shot of Rocephin with no relief of symptoms. Upon arrival, her left hand was swollen with three puncture wounds which have been draining yellowish purulent fluid. She was admitted started on IV Zosyn, given some pain meds. Orthopedic saw in consultation, she was taken for I&D and subsequently had a wash out the next day. WC grew Paterella multocida. ID saw in consultation. They made a diagnosis of Passarella infection of left hand with cellulitis and tenosynovitis. She complained of diarrhoea and first stool was negative for C. difficile.ID wants stool for c.difficile to be repeated prior to dc and she should use Flagyl 500 mg 3 times a day x1week. ID also want her to use Augmentin x 1week. Her symptoms have improved. Her vitals are stable. She will go home today and follow up with PCP and surgery in 10days for suture removal. Specialty Discharge - Follow Up or Referrals Follow up with: Heike Campa MD [Physician] - 08/27/17 9:15 am David Oconnor Jr., MD [Physician] - 09/01/17 1:30 pm (10 days) Discharge Plan - Discharge Data Disposition: Disch To Home/Self Care - Discharge Medications New amLODIPine [Norvasc] 2.5 mg PO DAILY #30 tablet diphenhydrAMINE CAP [Benadryl Cap] 25 mg PO Q6H PRN #7 capsule PRN Reason: Hives HYDROcodone/ACETAMIN 7.5-325 [[place] 7.5-325] 2 tablet PO Q4H PRN #20 tablet PRN Reason: Pain Moderate (4-7) Loperamide Liquid [Imodium Liquid] 2 mg PO PRN PRN #1 bottle PRN Reason: Diarrhea Pantoprazole Tab [Protonix Tab] 40 mg PO DAILY #30 tablet Acetaminophen Tab [Tylenol Tab] 650 mg PO Q4H PRN tablet PRN Reason: Fever, Headache, Mild Pain Amoxicillin/Clav Tab [Augmentin Tab] 875 mg PO Q12H #14 tablet metroNIDAZOLE TAB [Flagyl Cap/Tab] 500 mg PO Q8HR #20 tablet Continue Ascorbic Acid [Vitamin C] 500 mg PO DAILY Vitamin E 400 unit PO DAILY Lysine 500 mg PO DAILY Multivitamin [One Daily] 1 each PO DAILY Zinc 1 mg PO DAILY PARoxetine HCl [Paroxetine HCl] 20 mg PO DAILY Discontinued Sulfameth/Trimeth 800-160 Tab [Bactrim Ds Tab] 1 tablet PO BID #14 tablet - Follow Up or Referral Follow Up: Heike Campa MD [Physician] - 08/27/17 9:15 am David Oconnor Jr., MD [Physician] - 09/01/17 1:30 pm (10 days) - Forms/Instructions Instructions: Incision and Drainage (DC) Exam - Constitutional Vitals: Period Temp Pulse Resp BP Sys/Branham Pulse Ox Last 24 Hr 97.6 F-98.4 F 53-62 18-20 101-130/56-77 96-100 Discharge Results Procedures and tests throughout hospitalization: Pending Orders 08/16/17 17:16 Blood Culture Stat Labs on day of discharge: Preliminary micro results at discharge 08/16/17 17:16 Blood Culture - Preliminary Blood No growth at 3 days 08/16/17 17:17 Blood Culture - Preliminary Blood No growth at 3 days DS: Provider Date of admission: 08/16/17 17:58 Primary care physician: . No PCP Attending physician on admission: Arvin Fraire MD Consults: 08/16/17 17:58 Consult to Physician [CONS] Routine Comment: Please evaluate left hand swelling after cat bite Consulting Provider: David Oconnor Jr. Consulting Provider Notified: Yes When should Consulting Provider be notified: In am Person Notified: Dr. Oconnor Date Notified: 08/17/17 Time Notified: 07:47 Consult Notification Comment: Dr. Oconnor seen on AM rounds 08/17/17 11:29 Consult to Physician [CONS] Routine Comment: soft tissue hand infection from cat bites. Consulting Provider: Heike Campa Consulting Provider Notified: Yes When should Consulting Provider be notified: Now Person Notified: qi mann Date Notified: 08/17/17 Time Notified: 11:49 Discharging clinician: Mignon Hardy NP <Merlyn Silva - Last Filed: 08/21/17 13:53> Hospital Course - Time spent with patient Time with patient DS: Greater than 30 minutes (time spent greater than 30mins) Diagnosis - Discharge Diagnosis (1) Bite by animal Status: Acute (2) HTN (hypertension) Status: Acute (3) Ulcerative colitis Status: Acute (4) Bronchitis Status: Acute (5) Elevated TSH Status: Acute (6) Erythema Status: Acute Discharge Plan - Discharge Data Condition at Discharge: Stable Discharge Diet: advance to your usual diet Activity: resume usual activities as tolerated - Forms/Instructions Additional Discharge Instructions: follow with PCP in 1week Exam - Constitutional General appearance: no acute distress - Head Head exam: Present: normal inspection - ENT ENT exam: Present: normal exam - Respiratory Respiratory exam: Present: clear to auscultation bilaterally - Cardiovascular Cardiovascular exam: Present: regular rate and rhythm - GI/Abdominal GI/Abdominal exam: Present: normal bowel sounds - Extremities Exam Extremities exam: Present: other (left hand bandaged)
== END 2017-08-21 16:10 | disposition home or self-care (01) | DRG 580 ==
LOC: N.ED 15:51 → SUATTDRO 17:58 → N.EDINP 17:58 → N.3E 19:20
PROVIDERS: ADMIT Internal Medicine; ATTEND Internal Medicine